=== PATIENT | female | born 1995 | race Two or more races ===

== ENCOUNTER 2017-04-14 11:45 | Emergency (ER) | payer OTHER ==
[~2017-04-14] VITALS: Ht 162.6 cm; Wt 86.2 kg
[2017-04-14] MEDS ORDERED: OMEPRAZOLE DR 40 MG CAPSULE PO (12:07)
--- NOTE | 2017-04-14 14:12 | NUR ---
Patient discharged to home in stable conditon. Written and verbal after care instructions given. Patient verbalizes understanding of instructions.pt walks in steady gait.
== END 2017-04-14 14:21 | disposition home or self-care (01) ==
LOC: ER 11:48
DX: S61.213A Laceration without foreign body of left middle finger without damage to nail, initial encounter (principal); W26.0XXA Contact with knife, initial encounter; Y93.89 Activity, other specified; Y92.098 Other place in other non-institutional residence as the place of occurrence of the external cause; Y99.8 Other external cause status
CPT/HCPCS: A4663